=== PATIENT | female | born 1960 | race Caucasian/White ===

== ENCOUNTER → 2019-02-28 | Outpatient (CLI) | payer BC ==
--- NOTE | 2019-03-03 08:17 | MM ---
Reason for exam: screening (asymptomatic). Last mammogram was performed 3 years and 1 month ago. History: Patient is postmenopausal. Family history of breast cancer in sister. Benign excisional biopsy of the left breast, 1975. Physical Findings: A clinical breast exam by your physician is recommended on an annual basis and results should be correlated with mammographic findings. MG 3D Screening Mammo W/Cad Bilateral CC and MLO view(s) were taken. Prior study comparison: January 18, 2016, mammogram, performed at [facility]. February 21, 2014, mammogram, performed at [facility]. The breast tissue is heterogeneously dense. This may lower the sensitivity of mammography. Finding #1: There is stable architectural distortion in the upper quadrant, anterior, middle, central position of the left breast consistent with excision surgical history. Finding #2: There are typically benign round calcifications in the right breast. There is a chronic nodularity in the right inferior breast and left anterior breast. ASSESSMENT: Benign, BI-RAD 2 RECOMMENDATION: Routine screening mammogram of both breasts in 1 year.
== END | disposition home or self-care (01) ==
LOC: RADMAMWWP 10:08
PROVIDERS: ATTEND Family Medicine
DX: Z12.31 Encounter for screening mammogram for malignant neoplasm of breast (principal)
CPT/HCPCS: 77063; 77067

== ENCOUNTER 2020-02-27 10:21 | Emergency (ER) | payer BC ==
[2020-02-27 10:26] VITALS: BP 157/99; PULSE 81; RESP 16; TEMP 98.1
--- NOTE | 2020-02-27 10:49 | ED ---
Female Urogenital HPI - General Chief complaint: Urogenital Stated complaint: Female Time Seen by Provider: 02/27/20 10:27 Source: patient, RN notes reviewed Mode of arrival: ambulatory Limitations: no limitations - History of Present Illness Initial comments: 59-year-old female presents emergency Department chief complaint of unable to remove her tampon. Patient states that she's been using tampons to help with her vaginal prolapse as directed by her DIRECTOR OF PRIMARY. Patient states that she had one push out the other day. Patient states she's been using for the last 3 days and which has been helping her pressure. Patient states that she cannot feel the string is unsure where the tampon went. - Related Data Allergies Allergy/AdvReac Type Severity Reaction Status Date / Time No Known Allergies Allergy Verified 02/27/20 10:23 Review of Systems ROS Statement: Those systems with pertinent positive or pertinent negative responses have been documented in the HPI. ROS Other: All systems not noted in ROS Statement are negative. Past Medical History Additional Past Medical History / Comment(s): vaginal prolapse. History of Any Multi-Drug Resistant Organisms: None Reported Additional Past Surgical History / Comment(s): left breast cyst removed Smoking Status: Current every day smoker Past Alcohol Use History: Occasional Past Drug Use History: None Reported General Exam Limitations: no limitations General appearance: alert, in no apparent distress Head exam: Present: atraumatic, normocephalic, normal inspection Respiratory exam: Present: normal lung sounds bilaterally. Absent: respiratory distress, wheezes, rales, rhonchi, stridor Cardiovascular Exam: Present: regular rate, normal rhythm, normal heart sounds. Absent: systolic murmur, diastolic murmur, rubs, gallop, clicks GI/Abdominal exam: Present: soft, normal bowel sounds. Absent: distended, tenderness, guarding, rebound, rigid External exam: Present: normal external exam Speculum exam: Present: other (Exam performed with [place] RN, there is evidence of uterine prolapse, speculum exam shows cervix with mild irritation, there is no discharge, no evidence of tampon) Course Vital Signs 02/27/20 10:23 Temperature 98.1 F Pulse Rate 81 Respiratory 16 Rate Blood Pressure 157/99 O2 Sat by Pulse 97 Oximetry Medical Decision Making - Medical Decision Making Patient has history of prolapse, concern for unable to remove tampon this was not identified. Patient follow-up with urology and return parameters were discussed. Disposition Clinical Impression: Uterine prolapse Disposition: HOME SELF-CARE Condition: Stable Instructions (If sedation given, give patient instructions): Uterine Prolapse (ED) Additional Instructions: Please return to the Emergency Department if symptoms worsen or any other concerns. Is patient prescribed a controlled substance at d/c from ED?: No Referrals: Crispin Odell MD [Primary Care Provider] - 1-2 days Time of Disposition: 10:49
== END 2020-02-27 10:56 | disposition home or self-care (01) ==
LOC: EC 10:21
DX: N81.4 Uterovaginal prolapse, unspecified (principal); F17.200 Nicotine dependence, unspecified, uncomplicated
CPT/HCPCS: 99283